=== PATIENT | male | born 1965 | race Caucasian/White ===

== ENCOUNTER 2017-05-25 11:23 | Emergency (ER) | payer MEDICAID ==
[2017-05-25] MEDS ORDERED: Albuterol/Ipratropium 3.0-0.5 MG/3 ML Neb Soln NEB ONE (11:40)
[2017-05-25] MEDS ORDERED: Albuterol/Ipratropium 3.0-0.5 MG/3 ML Neb Soln ONE (11:41)
[2017-05-25] MEDS ORDERED: predniSONE 20 MG Tab PO ONE (11:45)
--- NOTE | 2017-05-25 11:53 | EDM.PDOC ---
ED HPI GENERAL MEDICAL PROBLEM - General Chief Complaint: Respiratory Problem Stated Complaint: TROUBLE BREATHING, COPD Time Seen by Provider: 05/25/17 11:35 Source of Information: Reports: Patient History Limitations: Reports: Other (no old records) - History of Present Illness INITIAL COMMENTS - FREE TEXT/NARRATIVE: 51 yo male with known chronic lung dz quit smoking about a month ago. Was recently seen in a clinic in [place] and then was referred to a hair spring cutter in [place]. He has since moved to [place] and does not have a local provider. Initially was given a course of prednisone that helped him significantly and this was followed up with a Roberta SHAHI(200 mcg/5 mcg) sampler that he is now out of. For "awhile" he did OK with must albuterol and Spiriva, now has increased SOB, wheezing, and cough. No fever. Onset: Gradual Duration: Day(s): Location: Reports: Chest Quality: Reports: Other (Mild chest tightness with coughing only) Severity: Moderate Improves with: Reports: Rest Worsens with: Reports: Movement Context: Reports: Other (COPD) Associated Symptoms: Reports: Cough, Shortness of Breath. Denies: Chest Pain, Fever/Chills, Nausea/Vomiting Treatments HAM SAWYER: Reports: Other (see below) (Spiriva/Albuterol) - Related Data Allergies Allergy/AdvReac Type Severity Reaction Status Date / Time No Known Allergies Allergy Verified 05/25/17 11:45 Home Meds: Home Meds Albuterol Sulfate [Ventolin Hfa] 2 puff INH Q4HR 05/25/17 [History] Tiotropium [Spiriva HandiHaler] 1 cap INH DAILY 05/25/17 [History] ED ROS GENERAL - Review of Systems Review Of Systems: See Below Constitutional: Reports: No Symptoms HEENT: Reports: No Symptoms Respiratory: Reports: Shortness of Breath, Wheezing, Cough. Denies: Pleuritic Chest Pain, Sputum, Hemoptysis Cardiovascular: Reports: No Symptoms Endocrine: Reports: No Symptoms GI/Abdominal: Reports: No Symptoms : Reports: No Symptoms Musculoskeletal: Reports: No Symptoms Skin: Reports: No Symptoms Neurological: Reports: No Symptoms ED EXAM, GENERAL - Physical Exam Exam: See Below Exam Limited By: No Limitations General Appearance: Alert, WD/WN, Mild Distress, Obese Eye Exam: Bilateral Eye: Normal Inspection Ears: Normal External Exam, Normal Canal, Hearing Grossly Normal Ear Exam: Bilateral Ear: Auricle Normal, Canal Normal Nose: Normal Inspection, Normal Mucosa, No Blood Throat/Mouth: Normal Inspection, Normal Lips, Normal Oropharynx, Normal Voice, No Airway Compromise Head: Atraumatic, Normocephalic Respiratory/Chest: Decreased Breath Sounds, Wheezing, Prolonged Expiration. No : Retractions Cardiovascular: Regular Rate, Rhythm, No Edema GI/Abdominal: Normal Bowel Sounds, Soft, Non-Tender, No Distention Back Exam: Normal Inspection. No: CVA Tenderness (R), CVA Tenderness (L) Extremities: Normal Inspection, Normal Range of Motion, Non-Tender, No Pedal Edema Neurological: Alert, Oriented, CN II-XII Intact, Normal Cognition, No Motor/ Sensory Deficits Psychiatric: Normal Affect, Normal Mood Skin Exam: Warm, Dry, Intact, Normal Color, No Rash Lymphatic: No Adenopathy Course - Vital Signs Text/Narrative:: Breathing better after tx here in the ER. Last Recorded V/S: Last Vital Signs Temp 36.2 C 05/25/17 11:56 Pulse 93 05/25/17 11:56 Resp 18 05/25/17 11:56 BP 159/102 H 05/25/17 11:56 Pulse Ox 92 L 05/25/17 11:56 - Orders/Labs/Meds Orders: Active Orders 24 hr Category Date Time Status RT Aerosol Therapy [RC] ASDIRECTED Care 05/25/17 11:40 Active RT Aerosol Therapy [RC] ASDIRECTED Care 05/25/17 12:04 Active Chest 2V [CR] Stat Exams 05/25/17 12:35 Taken Labs: Laboratory Tests 05/25/17 Range/Units 12:15 WBC 11.6 H (4.5-11.0) K/uL RBC 5.85 (4.30-5.90) M/uL Hgb 16.4 H (12.0-15.0) g/dL Hct 51.0 (40.0-54.0) % MCV 87 (80-98) fL MCH 28 (27-31) pg MCHC 32 (32-36) % Plt Count 328 (150-400) K/uL Meds: Medications Discontinued Medications Generic Name Dose Route Start Last Admin Trade Name Freq PRN Reason Stop Dose Admin Albuterol 2.5 mg 05/25/17 12:04 05/25/17 12:35 Proventil Neb Soln NEB 05/25/17 12:05 2.5 mg ONETIME ONE Administration Albuterol/Ipratropium 3 ml 05/25/17 11:40 05/25/17 11:59 Duoneb 3.0-0.5 Mg/3 Ml NEB 05/25/17 11:41 3 ml ONETIME ONE Administration Albuterol/Ipratropium Confirm 05/25/17 11:41 05/25/17 12:35 Duoneb 3.0-0.5 Mg/3 Ml Administered 05/25/17 11:42 Not Given Dose 3 ml .ROUTE .STK-MED ONE Prednisone 40 mg 05/25/17 11:45 05/25/17 11:59 Prednisone PO 05/25/17 11:46 40 mg ONETIME ONE Administration - Radiology Interpretation Free Text/Narrative:: CXR- Departure - Departure Time of Disposition: 13:09 Disposition: Home, Self-Care 01 Condition: Fair Clinical Impression: COPD with exacerbation - Discharge Information Referrals: PCP,None [Primary Care Provider] - Forms: ED Department Discharge - My Orders Last 24 Hours: My Active Orders 05/25/17 11:40 RT Aerosol Therapy [RC] ASDIRECTED 05/25/17 12:04 RT Aerosol Therapy [RC] ASDIRECTED 05/25/17 12:35 Chest 2V [CR] Stat - Assessment/Plan Last 24 Hours: My Active Orders 05/25/17 11:40 RT Aerosol Therapy [RC] ASDIRECTED 05/25/17 12:04 RT Aerosol Therapy [RC] ASDIRECTED 05/25/17 12:35 Chest 2V [CR] Stat
[2017-05-25] MEDS ORDERED: Albuterol 0.083% 2.5 MG/3 ML Neb Soln NEB ONE (12:04)
--- NOTE | 2017-05-25 13:10 | CR ---
Two-view chest The heart and vascular structures are within normal limits. There is a subtle prominence of the inter stitial markings in the mid and lower lung cano. There are no alveolar infiltrates. There are no ef fusions. Impression: 1. Nonspecific mild prominence of the interstitial markings. The finding may reflect a interstitial p neumonitis. 2. No alveolar infiltrates.
== END 2017-05-25 13:25 | disposition home or self-care (01) ==
LOC: JP.ED 11:23
DX: J44.1 Chronic obstructive pulmonary disease with (acute) exacerbation (principal); Z79.899 Other long term (current) drug therapy
CPT/HCPCS: 36415; 71020; 85027; 94640; 99284; A9270; J7620

== ENCOUNTER 2018-08-22 20:04 | Emergency (ER) | payer MEDICAID ==
[2018-08-22] MEDS ORDERED: Sodium Chloride 0.9% 10 ML Syringe FLUSH PRN ×2 (20:22)
--- NOTE | 2018-08-22 20:26 | EDM.PDOC ---
ED HPI GENERAL MEDICAL PROBLEM - General Chief Complaint: Respiratory Problem Stated Complaint: MEDICAL VIA [facility] Time Seen by Provider: 08/22/18 20:18 Source of Information: Reports: Patient, RN Notes Reviewed History Limitations: Reports: Respiratory Distress - History of Present Illness INITIAL COMMENTS - FREE TEXT/NARRATIVE: 53-year-old gentleman presents to the emergency department today with complaint of shortness of breath, he has a known history of COPD he states he's been out of his medications for 2 weeks now it has progressively gotten worse over the last 2 weeks was brought in by ambulance denies any fevers chest pain nausea or vomiting Treatments [employer]: Reports: Breathing Treatments headache Pain Score (Numeric/FACES): 4 shoulders upper middle back Pain Score (Numeric/FACES): 1 - Related Data Allergies Allergy/AdvReac Type Severity Reaction Status Date / Time No Known Allergies Allergy Verified 08/22/18 20:05 Home Meds: Home Meds Albuterol Sulfate [Ventolin Hfa] 2 puff INH Q4HR 05/25/17 [History] Ipratropium Arrey [Atrovent Hfa] 12.9 gm IH QID #1 hfa.aer.[email or web address] 05/25/17 [Rx] Tiotropium [Spiriva HandiHaler] 1 cap INH DAILY 05/25/17 [History] Past Medical History Respiratory History: Reports: COPD Genitourinary History: Reports: Renal Calculus - Past Surgical History HEENT Surgical History: Reports: Tonsillectomy Male Surgical History: Reports: Lithotripsy (ESWL) Musculoskeletal Surgical History: Reports: Other (See Below) Other Musculoskeletal Surgeries/Procedures:: left hand finger reconstruction of the 2nd 3rd and 4th digit Social & Family History - Tobacco Use Smoking Status *Q: Current Every Day Smoker Years of Tobacco use: 25 Packs/Tins Daily: 0.2 - Caffeine Use Caffeine Use: Reports: Tea - Recreational Drug Use Recreational Drug Use: No ED ROS GENERAL - Review of Systems Review Of Systems: See Below Constitutional: Reports: No Symptoms HEENT: Reports: No Symptoms Respiratory: Reports: Shortness of Breath, Wheezing, Cough. Denies: Sputum Cardiovascular: Reports: Dyspnea on Exertion GI/Abdominal: Reports: No Symptoms : Reports: No Symptoms Musculoskeletal: Reports: No Symptoms Skin: Reports: No Symptoms Neurological: Reports: No Symptoms ED EXAM, GENERAL - Physical Exam Exam: See Below Free Text/Narrative:: General: Male, mild respiratory distress use of the sensory muscles, alert and oriented x3 HEENT: head is atraumatic normocephalic, eyes pupils equal round reactive to light, sclera clear no conjunctivitis appreciated. Ears tympanic membranes clear and littlejohn landmarks and light reflex are present bilaterally canals are clear. Nose no septal deviation, nares are clear, no blood present. Mouth mucosa is moist and pink no erythema or exudate noted in soft palate, tongue is midline uvula is midline, dentition is intact. Neck: Supple no thyromegaly no tracheal deviation. Nodes: Cervical nodes subclavicular nodes nontender no palpable lymphadenopathy noted. Lungs: Wheezing both inspiratory and expiratory phase throughout all lung cano bilaterally CV: Regular rate and rhythm S1 and S2 appreciated no murmurs rubs or gallops noted. Abdomen: Soft, obese, nontender, no palpable masses or organomegaly appreciated , no distention no guarding bowel sounds are present, . Neuro: GCS 15, cranial nerves II through XII intact Skin: Warm and dry, intact Extremities: No lower extremity edema appreciated, Course - Vital Signs Last Recorded V/S: Last Vital Signs Temp 98.0 F 08/22/18 20:14 Pulse 93 08/22/18 21:24 Resp 16 08/22/18 21:24 BP 171/111 H 08/22/18 21:24 Pulse Ox 94 L 08/22/18 21:24 - Orders/Labs/Meds Orders: Active Orders 24 hr Category Date Time Status Peripheral IV Care [RC] . DIRECTED Care 08/22/18 20:23 Active RT Post Treatment Assessment [RC] Click to Edit Care 08/22/18 21:33 Active Sodium Chloride 0.9% [Saline Flush] Med 08/22/18 20:22 Active 10 ml FLUSH ASDIRECTED PRN Sodium Chloride 0.9% [Saline Flush] Med 08/22/18 20:22 Active 10 ml FLUSH ASDIRECTED PRN Peripheral IV Insertion Adult [OM.PC] Urgent Oth 08/22/18 20:22 Ordered Medication Orders Sodium Chloride (Saline Flush) 10 ml FLUSH ASDIRECTED PRN PRN Reason: Keep Vein Open Last Admin: 08/22/18 21:21 Dose: 10 ml Sodium Chloride (Saline Flush) 10 ml FLUSH ASDIRECTED PRN PRN Reason: Keep Vein Open Last Admin: 08/22/18 21:30 Dose: 10 ml Labs: Laboratory Tests 08/22/18 08/22/18 08/22/18 Range/Units 20:22 20:22 20:22 WBC 11.8 H (4.5-11.0) K/uL RBC 6.17 H (4.30-5.90) M/uL Hgb 16.4 H (12.0-15.0) g/dL Hct 52.9 (40.0-54.0) % MCV 86 (80-98) fL MCH 27 (27-31) pg MCHC 31 L (32-36) % Plt Count 305 (150-400) K/uL Neut % (Auto) 76 H (36-66) % Lymph % (Auto) 17 L (24-44) % [place] % (Auto) 4 (2-6) % Eos % (Auto) 3 (2-4) % Baso % (Auto) 0 (0-1) % Puncture Site Rt.radial ABG pH 7.403 (7.350-7.450) ABG pCO2 48.3 H (35.0-42.0) mmHg ABG pO2 61.9 L (75.0-100.0) mmHg ABG HCO3 29.5 H (22.0-26.0) mmol/L ABG Total CO2 25.3 (23.0-27.0) mmol/L ABG O2 Saturation 90.8 L (95.0-98.0) % ABG O2 Content 20.4 (15.0-23.0) %vol ABG Base Excess 4.2 mm/L ABG Hemoglobin 16.2 (13.5-18.0) g/dL ABG Oxyhemoglobin 89.5 % ABG Carboxyhemoglobin 0.8 (0.0-1.6) % ABG Methemoglobin 0.6 % Maxwell Test Passed O2 Delivery Device Nasal cannula Oxygen Flow Rate 2 L Sodium 144 (140-148) mmol/L Potassium 4.3 (3.6-5.2) mmol/L Chloride 103 (100-108) mmol/L Carbon Dioxide 31 (21-32) mmol/L Anion Gap 10.1 (5.0-14.0) mmol/L BUN 22 H (7-18) mg/dL Creatinine 1.1 (0.8-1.3) mg/dL Est Cr Clr Drug Dosing 75.88 mL/min Estimated GFR (MDRD) > 60 (>60) Glucose 139 H (74-106) mg/dL Calcium 9.1 (8.5-10.1) mg/dL Total Bilirubin 0.2 (0.2-1.0) mg/dL AST 22 (15-37) U/L ALT 41 (12-78) U/L Alkaline Phosphatase 118 H (46-116) U/L Troponin I < 0.017 (0.000-0.056) ng/mL NT-Pro-B Natriuret Pep (5-125) pg/mL Total Protein 7.8 (6.4-8.2) g/dL Albumin 3.4 (3.4-5.0) g/dL Globulin 4.4 H (2.3-3.5) g/dL Albumin/Globulin Ratio 0.8 L (1.2-2.2) 08/22/18 Range/Units 20:24 WBC (4.5-11.0) K/uL RBC (4.30-5.90) M/uL Hgb (12.0-15.0) g/dL Hct (40.0-54.0) % MCV (80-98) fL MCH (27-31) pg MCHC (32-36) % Plt Count (150-400) K/uL Neut % (Auto) (36-66) % Lymph % (Auto) (24-44) % [place] % (Auto) (2-6) % Eos % (Auto) (2-4) % Baso % (Auto) (0-1) % Puncture Site ABG pH (7.350-7.450) ABG pCO2 (35.0-42.0) mmHg ABG pO2 (75.0-100.0) mmHg ABG HCO3 (22.0-26.0) mmol/L ABG Total CO2 (23.0-27.0) mmol/L ABG O2 Saturation (95.0-98.0) % ABG O2 Content (15.0-23.0) %vol ABG Base Excess mm/L ABG Hemoglobin (13.5-18.0) g/dL ABG Oxyhemoglobin % ABG Carboxyhemoglobin (0.0-1.6) % ABG Methemoglobin % Maxwell Test O2 Delivery Device Oxygen Flow Rate L Sodium (140-148) mmol/L Potassium (3.6-5.2) mmol/L Chloride (100-108) mmol/L Carbon Dioxide (21-32) mmol/L Anion Gap (5.0-14.0) mmol/L BUN (7-18) mg/dL Creatinine (0.8-1.3) mg/dL Est Cr Clr Drug Dosing mL/min Estimated GFR (MDRD) (>60) Glucose (74-106) mg/dL Calcium (8.5-10.1) mg/dL Total Bilirubin (0.2-1.0) mg/dL AST (15-37) U/L ALT (12-78) U/L Alkaline Phosphatase (46-116) U/L Troponin I (0.000-0.056) ng/mL NT-Pro-B Natriuret Pep 1028 H (5-125) pg/mL Total Protein (6.4-8.2) g/dL Albumin (3.4-5.0) g/dL Globulin (2.3-3.5) g/dL Albumin/Globulin Ratio (1.2-2.2) Meds: Medications Generic Name Dose Route Start Last Admin Trade Name Freq PRN Reason Stop Dose Admin Sodium Chloride 10 ml 08/22/18 20:22 08/22/18 21:21 Saline Flush FLUSH 10 ml ASDIRECTED PRN Administration Keep Vein Open Sodium Chloride 10 ml 08/22/18 20:22 08/22/18 21:30 Saline Flush FLUSH 10 ml ASDIRECTED PRN Administration Keep Vein Open Discontinued Medications Generic Name Dose Route Start Last Admin Trade Name Freq PRN Reason Stop Dose Admin Albuterol 1 gm 08/22/18 21:32 08/22/18 21:51 Ventolin Hfa INH 08/22/18 21:33 1 inhalation ONETIME ONE Administration Methylprednisolone Sodium Succinate 125 mg 08/22/18 21:03 08/22/18 21:21 Solu-Medrol IVPUSH 08/22/18 21:04 125 mg ONETIME ONE Administration Departure - Departure Time of Disposition: 22:03 Disposition: Home, Self-Care 01 Condition: Fair Clinical Impression: COPD with exacerbation - Discharge Information Referrals: PCP,None [Primary Care Provider] - Forms: ED Department Discharge Additional Instructions: Use albuterol inhaler as needed for shortness of breath, recommend starting the prednisone taper tomorrow, recommend restarting your regular medications as soon as possible please follow-up with your primary care in the next 5-7 days for reevaluation, call return to the emergency department worsening of symptoms - My Orders Last 24 Hours: My Active Orders 08/22/18 20:22 Sodium Chloride 0.9% [Saline Flush] 10 ml FLUSH ASDIRECTED PRN Sodium Chloride 0.9% [Saline Flush] 10 ml FLUSH ASDIRECTED PRN Peripheral IV Insertion Adult [OM.PC] Urgent 08/22/18 20:23 Peripheral IV Care [RC] . DIRECTED 08/22/18 21:33 RT Post Treatment Assessment [RC] Click to Edit - Assessment/Plan Last 24 Hours: My Active Orders 08/22/18 20:22 Sodium Chloride 0.9% [Saline Flush] 10 ml FLUSH ASDIRECTED PRN Sodium Chloride 0.9% [Saline Flush] 10 ml FLUSH ASDIRECTED PRN Peripheral IV Insertion Adult [OM.PC] Urgent 08/22/18 20:23 Peripheral IV Care [RC] . DIRECTED 08/22/18 21:33 RT Post Treatment Assessment [RC] Click to Edit Plan: Assessment Acuity = acute Site and laterality = COPD exacerbation Etiology = medical compliance Manifestations = dyspnea Location of injury = Home Lab values = WBC elevated 11.8 consistent leukocytosis ABG pH 7.4 PCO2 48.3 PO2 at 61.5 bicarbonate at 29.5 troponin is negative BNP elevated 1028 probably related to cor pulmonale and chest x-ray unremarkable Plan He had good relief with albuterol neb provided and Solu-Medrol 125 mg 1, he was provided an MDI albuterol inhaler prescription written for prednisone taper burst 40 mg for 3 days 20 mg for 3 days then 10 milligrams per 5 days recommend follow-up primary care 5-7 days for reevaluation recommend restarting home meds as soon as possible This note was dictated using [employer]gar voice recognition software please call with any questions on syntax or grammar.
[2018-08-22] MEDS ORDERED: methylPREDNISolone Sodium Succinate 125 MG/2 ML SDV IVPUSH ONE (21:03)
--- NOTE | 2018-08-22 21:21 | CRLCR ---
Indication: SOB Technique: Chest 1 view Comparison: 05/25/2017. Findings/Impression: Cardiovascular and mediastinum: Cardiomegaly. Lungs and pleural space: A lordotic study. Elevated right hemidiaphragm. Right basilar and perihilar atelectasis. Followup with PA and lateral views to exclude a right infrahilar infiltrate. No gross pleural effusions. Bones and soft tissues: No significant change. Dictated by Donnell Chanel MD @ 08/22/2018 9:19:13 PM Dictated by: Donnell Chanel MD @ 08/22/2018 21:19:34 (Electronically Signed)
[2018-08-22] MEDS ORDERED: Albuterol 8 GM Inhaler INH ONE (21:32)
== END 2018-08-22 22:16 | disposition home or self-care (01) ==
LOC: JP.ED 20:04
DX: J44.1 Chronic obstructive pulmonary disease with (acute) exacerbation (principal); F17.210 Nicotine dependence, cigarettes, uncomplicated; Z98.890 Other specified postprocedural states
CPT/HCPCS: 36600; 71045; 80053; 82803; 83880; 84484; 85025; 94640; 96374; 99285; A9270; J2930

== ENCOUNTER 2018-09-12 16:47 | Inpatient (IN) | payer MEDICAID ==
--- NOTE | 2018-09-12 16:54 | EDM.PDOC ---
ED HPI GENERAL MEDICAL PROBLEM - General Stated Complaint: [facility] Time Seen by Provider: 09/12/18 16:47 Source of Information: Reports: Patient, EMS History Limitations: Reports: Physical Impairment, Respiratory Distress - History of Present Illness INITIAL COMMENTS - FREE TEXT/NARRATIVE: 53-year-old male had a fairly sudden onset of severe respiratory distress over the past 3 hours, requiring ambulance transfer to the hospital. He was fine at 2 PM, laid down for a nap and when he woke he felt tight and shortness of breath. He took a DuoNeb which usually turns around, his time it didn't help and he continued to worsen. He arrives with CPAP, he has had 150 mg of Solu- Medrol IV, and albuterol nebulizer and DuoNeb nebulizer. O2 sats are 94% on 10 L of O2 given by CPAP mask. Respiratory rate is increased, respiratory effort is increased, patient is fairly uncomfortable. He was able to walk out to the ambulance prior to transfer. He was seen in the emergency room within the last month for similar symptoms, responded to outpatient prednisone. Onset: Sudden Duration: Hour(s): (3 hours) Back Pain Score (Numeric/FACES): 5 - Related Data Allergies Allergy/AdvReac Type Severity Reaction Status Date / Time No Known Allergies Allergy Verified 09/12/18 19:49 Home Meds: Home Meds Albuterol Sulfate [Ventolin Hfa] 2 puff INH Q4HR 05/25/17 [History] Ipratropium [place] [Atrovent Hfa] 12.9 gm IH QID #1 hfa.aer.ad 05/25/17 [Rx] Tiotropium [Spiriva HandiHaler] 1 cap INH DAILY 05/25/17 [History] Past Medical History Respiratory History: Reports: COPD Genitourinary History: Reports: Renal Calculus - Past Surgical History HEENT Surgical History: Reports: Tonsillectomy Male Surgical History: Reports: Lithotripsy (ESWL) Musculoskeletal Surgical History: Reports: Other (See Below) Other Musculoskeletal Surgeries/Procedures:: left hand finger reconstruction of the 2nd 3rd and 4th digit Social & Family History - Caffeine Use Caffeine Use: Reports: Tea ED ROS GENERAL - Review of Systems Review Of Systems: See Below Constitutional: Denies: Fever, Chills (() HEENT: Denies: Throat Pain Respiratory: Reports: Shortness of Breath, Cough Cardiovascular: Denies: Chest Pain GI/Abdominal: Reports: No Symptoms : Reports: No Symptoms Musculoskeletal: Reports: Back Pain Skin: Reports: No Symptoms Neurological: Denies: Headache ED EXAM, GENERAL - Physical Exam Exam: See Below Exam Limited By: Respiratory Distress General Appearance: Alert, Moderate Distress Eye Exam: Bilateral Eye: EOMI Head: Atraumatic Respiratory/Chest: Respiratory Distress, Wheezing (Marked diffuse bilateral expiratory wheezes) Cardiovascular: Regular Rate, Rhythm, Other (Distant heart sounds) GI/Abdominal: Other (Morbidly obese, nontender) Extremities: No: Pedal Edema (No significant pedal edema) Neurological: Alert, Oriented Psychiatric: Anxious Skin Exam: Warm, Dry Course - Vital Signs Last Recorded V/S: Last Vital Signs Temp 96.5 F 09/13/18 07:00 Pulse 90 09/13/18 07:13 Resp 24 H 09/13/18 07:00 BP 172/93 H 09/13/18 07:00 Pulse Ox 94 L 09/13/18 07:31 - Orders/Labs/Meds Orders: Medication Orders Acetaminophen (Tylenol) 650 mg PO Q4H PRN PRN Reason: Pain (Mild 1-3)/fever Albuterol (Proventil Neb Soln) 2.5 mg NEB Q2H PRN PRN Reason: shortness of breath/wheezing Last Admin: 09/13/18 00:01 Dose: 2.5 mg Albuterol/Ipratropium (Duoneb 3.0-0.5 Mg/3 Ml) 3 ml NEB QIDRT [facility] Last Admin: 09/13/18 07:12 Dose: 3 ml Admin: 09/12/18 20:23 Dose: 3 ml Benzonatate (Tessalon Perles) 100 mg PO TID PRN PRN Reason: Cough Enoxaparin Sodium (Lovenox) 40 mg SUBCUT DAILY [facility] Guaifenesin/Codeine Phosphate (Robitussin Ac) 10 ml PO Q4H PRN PRN Reason: Cough Ceftriaxone Sodium 2 gm/ (Sodium Chloride) 50 mls @ 100 mls/hr IV Q24H [facility] Last Admin: 09/12/18 18:48 Dose: 100 mls/hr Sodium Chloride (Normal Saline) 1,000 mls @ 100 mls/hr IV ASDIRECTED [facility] Last Admin: 09/12/18 23:01 Dose: 100 mls/hr Infusion: 09/12/18 23:01 Dose: 100 mls/hr Admin: 09/12/18 19:15 Dose: 100 mls/hr Azithromycin 500 mg/ Sodium (Chloride) 250 mls @ 250 mls/hr IV Q24H [facility] Ibuprofen (Motrin) 600 mg PO Q6H PRN PRN Reason: Pain/Fever Lorazepam (Ativan) 0.5 mg IVPUSH Q4H PRN PRN Reason: Anxiety Methylprednisolone Sodium Succinate (Solu-Medrol) 62.5 mg IVPUSH Q8H [facility] Last Admin: 09/13/18 00:26 Dose: 62.5 mg Morphine Sulfate (Morphine) 4 mg IVPUSH Q2H PRN PRN Reason: Pain (severe 7-10) Ondansetron HCl (Zofran Odt) 4 mg PO Q6H PRN PRN Reason: Nausea able to take PO Ondansetron HCl (Zofran) 4 mg IV Q6H PRN PRN Reason: Nausea/Vomiting Pantoprazole Sodium (Protonix) 40 mg PO ACBREAKFAST [facility] Polyethylene Glycol (Miralax) 17 gm PO DAILY PRN PRN Reason: Constipation Senna/Docusate Sodium (Senna Plus) 1 tab PO BID PRN PRN Reason: Constipation Labs: Laboratory Tests 09/12/18 09/12/18 09/12/18 Range/Units 16:49 17:01 17:01 WBC 14.4 H (4.5-11.0) K/uL RBC 5.86 (4.30-5.90) M/uL Hgb 15.5 H (12.0-15.0) g/dL Hct 51.1 (40.0-54.0) % MCV 87 (80-98) fL MCH 27 (27-31) pg MCHC 30 L (32-36) % Plt Count 365 (150-400) K/uL Neut % (Auto) 74 H (36-66) % Lymph % (Auto) 16 L (24-44) % [place] % (Auto) 5 (2-6) % Eos % (Auto) 5 H (2-4) % Baso % (Auto) 0 (0-1) % Puncture Site Rt.radial ABG pH 7.320 L (7.350-7.450) ABG pCO2 58.4 H (35.0-42.0) mmHg ABG pO2 77.5 (75.0-100.0) mmHg ABG HCO3 29.2 H (22.0-26.0) mmol/L ABG Total CO2 25.6 (23.0-27.0) mmol/L ABG O2 Saturation 93.8 L (95.0-98.0) % ABG O2 Content 20.4 (15.0-23.0) %vol ABG Base Excess 1.9 mm/L ABG Hemoglobin 15.9 (13.5-18.0) g/dL ABG Oxyhemoglobin 91.4 % ABG Carboxyhemoglobin 2.1 H (0.0-1.6) % ABG Methemoglobin 0.5 % Maxwell Test Passed O2 Delivery Device Cpap Oxygen Flow Rate 10 L Sodium 140 (140-148) mmol/L Potassium 4.6 (3.6-5.2) mmol/L Chloride 102 (100-108) mmol/L Carbon Dioxide 30 (21-32) mmol/L Anion Gap 7.6 (5.0-14.0) mmol/L BUN 17 (7-18) mg/dL Creatinine 1.0 (0.8-1.3) mg/dL Est Cr Clr Drug Dosing 83.19 mL/min Estimated GFR (MDRD) > 60 (>60) Glucose 135 H (74-106) mg/dL Calcium 9.0 (8.5-10.1) mg/dL Total Bilirubin 0.3 (0.2-1.0) mg/dL AST 37 (15-37) U/L ALT 47 (12-78) U/L Alkaline Phosphatase 125 H (46-116) U/L Troponin I 0.022 (0.000-0.056) ng/mL Total Protein 7.6 (6.4-8.2) g/dL Albumin 3.2 L (3.4-5.0) g/dL Globulin 4.4 H (2.3-3.5) g/dL Albumin/Globulin Ratio 0.7 L (1.2-2.2) Meds: Medications Generic Name Dose Route Start Last Admin Trade Name Freq PRN Reason Stop Dose Admin Acetaminophen 650 mg 09/12/18 18:28 Tylenol PO Q4H PRN Pain (Mild 1-3)/fever Albuterol 2.5 mg 09/12/18 18:28 09/13/18 00:01 Proventil Neb Soln NEB 2.5 mg Q2H PRN Administration shortness of breath/wheezing Albuterol/Ipratropium 3 ml 09/12/18 21:00 09/13/18 07:12 Duoneb 3.0-0.5 Mg/3 Ml NEB 3 ml QIDRT [facility] Administration Benzonatate 100 mg 09/12/18 18:28 Tessalon Perles PO TID PRN Cough Enoxaparin Sodium 40 mg 09/13/18 09:00 Lovenox SUBCUT DAILY [facility] Guaifenesin/Codeine Phosphate 10 ml 09/12/18 18:28 Robitussin Ac PO Q4H PRN Cough Ceftriaxone Sodium 2 gm/ 50 mls @ 100 mls/hr 09/12/18 18:30 09/12/18 18:48 Sodium Chloride IV 100 mls/hr Q24H [facility] Administration Sodium Chloride 1,000 mls @ 100 mls/hr 09/12/18 18:28 09/12/18 23:01 Normal Saline IV 100 mls/hr ASDIRECTED [facility] Administration Azithromycin 500 mg/ Sodium 250 mls @ 250 mls/hr 09/13/18 17:00 Chloride IV Q24H [facility] Ibuprofen 600 mg 09/12/18 18:28 Motrin PO Q6H PRN Pain/Fever Lorazepam 0.5 mg 09/12/18 18:28 Ativan IVPUSH Q4H PRN Anxiety Methylprednisolone Sodium Succinate 62.5 mg 09/13/18 01:00 09/13/18 00:26 Solu-Medrol IVPUSH 62.5 mg Q8H [facility] Administration Morphine Sulfate 4 mg 09/12/18 18:28 Morphine IVPUSH Q2H PRN Pain (severe 7-10) Ondansetron HCl 4 mg 09/12/18 18:28 Zofran Odt PO Q6H PRN Nausea able to take PO Ondansetron HCl 4 mg 09/12/18 18:28 Zofran IV Q6H PRN Nausea/Vomiting Pantoprazole Sodium 40 mg 09/13/18 07:30 Protonix PO ACBREAKFAST [facility] Polyethylene Glycol 17 gm 09/12/18 18:28 Miralax PO DAILY PRN Constipation Senna/Docusate Sodium 1 tab 09/12/18 18:28 Senna Plus PO BID PRN Constipation Discontinued Medications Generic Name Dose Route Start Last Admin Trade Name Sam PRN Reason Stop Dose Admin Hydralazine HCl 5 mg 09/12/18 21:22 09/12/18 21:34 Apresoline IVPUSH 09/12/18 21:23 5 mg ONETIME ONE Administration Azithromycin 500 mg/ Sodium 250 mls @ 250 mls/hr 09/12/18 19:30 09/12/18 19: 17 Chloride IV 250 mls/hr Q24H [facility] Administration - Re-Assessments/Exams Free Text/Narrative Re-Assessment/Exam: 09/12/18 17:34 Patient was continued on CPAP, ABGs CBC and portable chest x-ray were obtained as well as a BMP. Chest x-ray showed no significant failure or infiltrate, there was a small oval shaped density in the left costophrenic angle seen anteriorly. ABGs returned with a picture of respiratory acidosis, elevated CO2 and decreased pH. He slowly improved. I asked the hospitalist service to assess the patient for admission for acute exacerbation of reactive airways and hypoxia. 09/12/18 17:35 PH was 7.30, PCO2 58. White count 14,400, hemoglobin 15.5. Departure - Departure Time of Disposition: 18:30 Disposition: Admitted As Inpatient 64 Condition: Fair Clinical Impression: Exacerbation of asthma Qualifiers: Asthma severity: severe Asthma persistence: persistent Qualified Code(s): J45.51 - Severe persistent asthma with (acute) exacerbation - Discharge Information
--- NOTE | 2018-09-12 18:07 | CRLCR ---
INDICATION: SEVERE SHORTNESS OF BREATH PREVIOUS IMAGE TAKEN 3 WEEKS AGO SENT, [facility] SHOULD HAVE PRIOR REPORT HISTORY: Shortness of breath. COMPARISON: 08/22/2018. TECHNIQUE: Chest one-view portable upright. FINDINGS: Interval improvement in bibasilar atelectasis, when compared with previous. Vague opacities persist at the left lung base. There is no pneumothorax. The central airway is normal. The osseous structures are intact. Lateral costophrenic sulci are sharp. Heart size and pulmonary vasculature are within normal limits given portable technique. IMPRESSION: Interval improvement in bibasilar atelectasis when compared with 08/22/2018. Dictated by Kieran Montemayor MD @ 09/12/2018 6:05:08 PM Dictated by: Kieran Montemayor MD @ 09/12/2018 18:05:14 (Electronically Signed)
--- NOTE | 2018-09-12 18:16 | PCM.HP ---
H&P History of Present Illness - General Date of Service: 09/12/18 Admit Problem/Dx: Admission Diagnosis/Problem Admission Diagnosis/Problem Acute bronchitis Source of Information: Patient, Provider History Limitations: Reports: No Limitations - History of Present Illness Initial Comments - Free Text/Narative: Harmeet presents to the emergency room today by ambulance with acute onset of shortness of breath that started around 2 PM this afternoon after he woke up from a nap. He reports that he had an increase in his shortness of breath as well as a cough 2 days ago and did use his albuterol inhaler more than usual. Symptoms were better yesterday and were pretty minimal this morning prior to taking a nap. He does note an increased cough which is occasionally productive, mostly for clear sputum. He doesn't think he's had any fevers or chills. Appetite has been normal. No change in bowel or bladder habits. Since onset of symptoms this afternoon he reports a mild to moderate sharp pain underneath his rib cage. This radiates around to the back slightly. Pain is worse with taking deep breaths and better when he is able to slow down his breathing. He said normally using a nebulizer decreases his shortness of breath symptoms but it did not work today. Has not had any sick contacts. He did have steroids about 3 weeks ago but has not had any antibiotics. He has not traveled. No chest pain or exertional chest pain. Workup in the emergency room revealed respiratory distress a gentleman who is on CPAP. His white count was normal and chemistries were unremarkable. ABGs showed mild acidosis with a PCO2 of 58. Chest x-ray was clear. He did receive steroids as well as a nebulizer in the ambulance. He will be admitted to the intensive care unit for bronchitis with COPD exacerbation, respiratory failure and the necessity of noninvasive ventilation. Back Pain Score (Numeric/FACES): 5 - Related Data Allergies/Adverse Reactions: Allergies Allergy/AdvReac Type Severity Reaction Status Date / Time No Known Allergies Allergy Verified 09/12/18 17:26 Home Medications: Home Meds Albuterol Sulfate [Ventolin Hfa] 2 puff INH Q4HR 05/25/17 [History] Ipratropium [place] [Atrovent Hfa] 12.9 gm IH QID #1 hfa.aer.ad 05/25/17 [Rx] Tiotropium [Spiriva HandiHaler] 1 cap INH DAILY 05/25/17 [History] Past Medical History Respiratory History: Reports: COPD Genitourinary History: Reports: Renal Calculus - Past Surgical History HEENT Surgical History: Reports: Tonsillectomy Male Surgical History: Reports: Lithotripsy (ESWL) Musculoskeletal Surgical History: Reports: Other (See Below) Other Musculoskeletal Surgeries/Procedures:: left hand finger reconstruction of the 2nd 3rd and 4th digit Social & Family History - Family History Respiratory: Denies: COPD - Tobacco Use Smoking Status *Q: Current Every Day Smoker Years of Tobacco use: 25 Packs/Tins Daily: 0.2 - Caffeine Use Caffeine Use: Reports: Tea - Alcohol Use Alcohol Use History: No - Recreational Drug Use Recreational Drug Use: No H&P Review of Systems - Review of Systems: Review Of Systems: See Below Free Text/Narrative: A complete 12 point review of systems was obtained. Pertinent positives and negatives are noted in the history of present illness. All other systems were reviewed and were negative except as noted. Exam - Exam Exam: See Below - Vital Signs Vital Signs: Last Vital Signs Temp 36.0 C 09/12/18 16:57 Pulse 100 09/12/18 17:54 Resp 24 H 09/12/18 17:54 BP 148/101 H 09/12/18 17:54 Pulse Ox 95 09/12/18 17:54 Weight: 168.2 kg - Exam Quality Assessment: Supplemental Oxygen General: Alert, Oriented, Cooperative, Mild Distress (increased work of breathing), Other (Able to speak in short sentences) HEENT: Conjunctiva Clear. No: Mucosa Moist & [place] (dry), Scleral Icterus Neck: Supple. No: Lymphadenopathy Lungs: Wheezing (diffuse inspiratory and expiratory ). No: Normal Respiratory Effort (increased work of breathing ) Cardiovascular: Regular Rhythm, Tachycardia GI/Abdominal Exam: Normal Bowel Sounds, Soft, Non-Tender, No Distention, Other ( obese) Back Exam: Normal Inspection Extremities: No Pedal Edema. No: Increased Warmth Skin: Warm, Dry Neuro Extensive - Mental Status: Alert, Oriented x3, Nl Response to Commands Neuro Extensive - Motor, Sensory, Reflexes: No: Abnormal Motor, Tremor Psychiatric: Alert, Normal Affect - Patient Data Lab Results Last 24 hrs: Laboratory Results - last 24 hr 03/17/19 03/17/19 03/17/19 Range/Units 16:49 17:01 17:01 WBC 14.4 H (4.5-11.0) K/uL RBC 5.86 (4.30-5.90) M/uL Hgb 15.5 H (12.0-15.0) g/dL Hct 51.1 (40.0-54.0) % MCV 87 (80-98) fL MCH 27 (27-31) pg MCHC 30 L (32-36) % Plt Count 365 (150-400) K/uL Neut % (Auto) 74 H (36-66) % Lymph % (Auto) 16 L (24-44) % [place] % (Auto) 5 (2-6) % Eos % (Auto) 5 H (2-4) % Baso % (Auto) 0 (0-1) % Puncture Site Rt.radial ABG pH 7.320 L (7.350-7.450) ABG pCO2 58.4 H (35.0-42.0) mmHg ABG pO2 77.5 (75.0-100.0) mmHg ABG HCO3 29.2 H (22.0-26.0) mmol/L ABG Total CO2 25.6 (23.0-27.0) mmol/L ABG O2 Saturation 93.8 L (95.0-98.0) % ABG O2 Content 20.4 (15.0-23.0) %vol ABG Base Excess 1.9 mm/L ABG Hemoglobin 15.9 (13.5-18.0) g/dL ABG Oxyhemoglobin 91.4 % ABG Carboxyhemoglobin 2.1 H (0.0-1.6) % ABG Methemoglobin 0.5 % Maxwell Test Passed O2 Delivery Device Cpap Oxygen Flow Rate 10 L Sodium 140 (140-148) mmol/L Potassium 4.6 (3.6-5.2) mmol/L Chloride 102 (100-108) mmol/L Carbon Dioxide 30 (21-32) mmol/L Anion Gap 7.6 (5.0-14.0) mmol/L BUN 17 (7-18) mg/dL Creatinine 1.0 (0.8-1.3) mg/dL Est Cr Clr Drug Dosing 83.19 mL/min Estimated GFR (MDRD) > 60 (>60) Glucose 135 H (74-106) mg/dL Calcium 9.0 (8.5-10.1) mg/dL Total Bilirubin 0.3 (0.2-1.0) mg/dL AST 37 (15-37) U/L ALT 47 (12-78) U/L Alkaline Phosphatase 125 H (46-116) U/L Troponin I 0.022 (0.000-0.056) ng/mL Total Protein 7.6 (6.4-8.2) g/dL Albumin 3.2 L (3.4-5.0) g/dL Globulin 4.4 H (2.3-3.5) g/dL Albumin/Globulin Ratio 0.7 L (1.2-2.2) Result Diagrams: 09/12/18 17:01 09/12/18 17:01 Imaging Impressions Last 24 hrs: CXR - images personally reviewed - there is hyperinflation but lungs are otherwise clear with no mass, effusion or definite infiltrate *Q Meaningful Use (ADM) - VTE Risk Assess *Q Each Risk Factor Represents 1 Point: Age 41 - 59 years, Obesity ( BMI > 25 kg/m2 ), Serious lung disease including pneumonia, Abnormal Pulmonary Function (COPD) Total Score 1 Point Risk Factors: 4 Each Risk Factor Represents 2 Points: None Total Score 2 Point Risk Factors: 0 Each Risk Factor Represents 3 Points: None Total Score 3 Point Risk Factors: 0 Each Risk Factor Represents 5 Points: None Total Score 5 Point Risk Factors: 0 Venous Thromboembolism Risk Factor Score *Q: 4 - Problem List (1) Acute bronchitis SNOMED Code(s): 54619367 ICD Code: J20.9 - ACUTE BRONCHITIS, UNSPECIFIED Status: Acute Current Visit: Yes Qualifiers: Bronchitis organism: unspecified organism Qualified Code(s): J20.9 - Acute bronchitis, unspecified (2) Acute respiratory failure with hypoxia and hypercapnia SNOMED Code(s): 677416337 ICD Code: J96.01 - ACUTE RESPIRATORY FAILURE WITH HYPOXIA; J96.02 - ACUTE RESPIRATORY FAILURE WITH HYPERCAPNIA Status: Acute Current Visit: Yes (3) COPD with exacerbation SNOMED Code(s): 174977890, 432572882 ICD Code: J44.1 - CHRONIC OBSTRUCTIVE PULMONARY DISEASE W (ACUTE) EXACERBATION Status: Acute Current Visit: No (4) Tobacco dependence SNOMED Code(s): 88527160 ICD Code: F17.200 - NICOTINE DEPENDENCE, UNSPECIFIED, UNCOMPLICATED Status : Chronic Current Visit: Yes (5) Morbid obesity with BMI of 50.0-59.9, adult SNOMED Code(s): 758200983, 74087373272951 ICD Code: E66.01 - MORBID (SEVERE) OBESITY DUE TO EXCESS CALORIES; Z68.43 - BODY MASS INDEX (BMI) 50-59.9, ADULT Status: Chronic Current Visit: Yes Problem List Initiated/Reviewed/Updated: Yes Orders Last 24hrs: Active Orders 24 hr Category Date Time Status Patient Status Manage Transfer [TRANSFER] Routine ADT 09/12/18 18:01 Ordered Resuscitation Status Routine Resus Stat 09/12/18 18:02 Ordered Assessment/Plan Comment:: ASSESSMENT AND PLAN - Acute bronchitis - complicated by acute exacerbation of COPD and acute respiratory failure with hypoxia and hypercapnia. Patient is a nonsmoker. He reports recent medication compliance. Symptoms have been progressing over a couple of days but more acutely this afternoon. Currently no fevers. Chest x- ray clear. He does have CO2 retention. He continues to work hard despite being on CPAP which is being transitioned to noninvasive ventilation. He does have increased cough and some sputum. -Ceftriaxone and azithromycin -IV steroids -Repeat ABGs in a few hours and in the morning -Scheduled and as needed nebulizers -Noninvasive ventilation, wean as able but I would anticipate he will need an overnight at least -Gentle fluids -Symptomatic management of cough -Lorazepam as needed if he develops anxiety/claustrophobia with the mask Tobacco dependence - Patient will need discussions about tobacco cessation once respiratory status has stabilized. Morbid obesity - BMIs to shy of 55. Maintenance issues - - DVT prophylaxis - enoxaparin - GI prophylaxis - PPI - Nutrition - clear liquids until respiratory status stabilizes - Orta catheter - not indicated CODE STATUS - full code Admission justification - This patient will be admitted for inpatient services and is medically appropriate meeting medical necessity for inpatient admission as outlined in my documentation. I reasonably expect the patient will require inpatient services that span a period time over 2 midnights. I reasonably expect this patient to be discharged or transferred within 96 hours after [facility] to the [facility]. Disposition - I would anticipate discharge home after the hospital stay Primary care physician - Vaibhav Carr M.D.
[2018-09-12] MEDS ORDERED: Acetaminophen 325 MG Tab PO PRN (18:28)
[2018-09-12] MEDS ORDERED: Albuterol 0.083% 2.5 MG/3 ML Neb Soln NEB PRN (18:28)
[2018-09-12] MEDS ORDERED: LORazepam 2 MG/ML SDV IVPUSH PRN (18:28)
[2018-09-12] MEDS ORDERED: Morphine 4 MG/ML Syringe IVPUSH PRN (18:28)
[2018-09-12] MEDS ORDERED: Polyethylene Glycol 3350 Powder 17 GM Packet PO PRN (18:28)
[2018-09-12] MEDS ORDERED: Ondansetron 4 MG/2 ML SDV IV PRN (18:28)
[2018-09-12] MEDS ORDERED: Ibuprofen 600 MG Tab PO PRN (18:28)
[2018-09-12] MEDS ORDERED: Ondansetron 4 MG Tab.DIS PO PRN (18:28)
[2018-09-12] MEDS: cefTRIAXone 2 GM in Sodium Chloride 0.9% 50 ML IV SCH (18:48)
[2018-09-12] MEDS: Sodium Chloride 0.9% 1,000 ML IV SCH ×2 (19:15→23:01)
[2018-09-12] MEDS ORDERED: Azithromycin 500 MG in Sodium Chloride 0.9% 250 ML IV SCH (19:30)
[2018-09-12] MEDS: Albuterol/Ipratropium 3.0-0.5 MG/3 ML Neb Soln NEB SCH (20:23)
[2018-09-12] MEDS ORDERED: hydrALAZINE 20 MG/ML SDV IVPUSH ONE (21:22)
[2018-09-13] MEDS: methylPREDNISolone Sodium Succinate 125 MG/2 ML SDV IVPUSH SCH ×3 (00:26→17:54)
[2018-09-13] MEDS: Albuterol/Ipratropium 3.0-0.5 MG/3 ML Neb Soln NEB SCH ×4 (07:12→21:21)
[2018-09-13] MEDS: Pantoprazole 40 MG Tab.CR PO SCH (08:07)
[2018-09-13] MEDS: Enoxaparin 40 MG/0.4 ML Syringe SUBCUT SCH (08:10)
[2018-09-13] MEDS: Sodium Chloride 0.9% 1,000 ML IV SCH (09:35)
--- NOTE | 2018-09-13 10:05 | PCM.PN ---
- General Info Date of Service: 09/13/18 Subjective Update: Mr. Ramey is admitted early yesterday evening with bronchitis, hypoxia, and COPD exacerbation. He has been treated with noninvasive positive pressure ventilation overnight, this morning is on nasal cannula with relatively high flow rate. He does feel improved from admission with less shortness of breath and cough. Functional Status: Reports: Tolerating Diet, Urinating - Review of Systems General: Denies: Fever, Chills Pulmonary: Reports: Shortness of Breath, Cough, Wheezing. Denies: Sputum, Hemoptysis Cardiovascular: Reports: Dyspnea on Exertion. Denies: Chest Pain, Palpitations , Orthopnea, PND, Edema Gastrointestinal: Reports: No Symptoms - Patient Data Vitals - Most Recent: Last Vital Signs Temp 96.5 F 09/13/18 07:00 Pulse 86 09/13/18 09:00 Resp 19 09/13/18 09:00 BP 168/102 H 09/13/18 09:00 Pulse Ox 95 09/13/18 09:00 Weight - Most Recent: 367 lb 3.196 oz I&O - Last 24 Hours: Intake & Output 09/12/18 09/13/18 09/13/18 22:59 06:59 14:59 Intake Total 1312 500 Output Total 250 475 200 Balance -250 837 300 Lab Results Last 24 Hours: Laboratory Results - last 24 hr 09/12/18 09/12/18 09/12/18 Range/Units 16:49 17:01 17:01 WBC 14.4 H (4.5-11.0) K/uL RBC 5.86 (4.30-5.90) M/uL Hgb 15.5 H (12.0-15.0) g/dL Hct 51.1 (40.0-54.0) % MCV 87 (80-98) fL MCH 27 (27-31) pg MCHC 30 L (32-36) % Plt Count 365 (150-400) K/uL Neut % (Auto) 74 H (36-66) % Lymph % (Auto) 16 L (24-44) % Nelson % (Auto) 5 (2-6) % Eos % (Auto) 5 H (2-4) % Baso % (Auto) 0 (0-1) % Puncture Site Rt.radial ABG pH 7.320 L (7.350-7.450) ABG pCO2 58.4 H (35.0-42.0) mmHg ABG pO2 77.5 (75.0-100.0) mmHg ABG HCO3 29.2 H (22.0-26.0) mmol/L ABG Total CO2 25.6 (23.0-27.0) mmol/L ABG O2 Saturation 93.8 L (95.0-98.0) % ABG O2 Content 20.4 (15.0-23.0) %vol ABG Base Excess 1.9 mm/L ABG Hemoglobin 15.9 (13.5-18.0) g/dL ABG Oxyhemoglobin 91.4 % ABG Carboxyhemoglobin 2.1 H (0.0-1.6) % ABG Methemoglobin 0.5 % Maxwell Test Passed O2 Delivery Device Cpap Oxygen Flow Rate 10 L Sodium 140 (140-148) mmol/L Potassium 4.6 (3.6-5.2) mmol/L Chloride 102 (100-108) mmol/L Carbon Dioxide 30 (21-32) mmol/L Anion Gap 7.6 (5.0-14.0) mmol/L BUN 17 (7-18) mg/dL Creatinine 1.0 (0.8-1.3) mg/dL Est Cr Clr Drug Dosing 83.19 mL/min Estimated GFR (MDRD) > 60 (>60) Glucose 135 H (74-106) mg/dL Calcium 9.0 (8.5-10.1) mg/dL Total Bilirubin 0.3 (0.2-1.0) mg/dL AST 37 (15-37) U/L ALT 47 (12-78) U/L Alkaline Phosphatase 125 H (46-116) U/L Troponin I 0.022 (0.000-0.056) ng/mL Total Protein 7.6 (6.4-8.2) g/dL Albumin 3.2 L (3.4-5.0) g/dL Globulin 4.4 H (2.3-3.5) g/dL Albumin/Globulin Ratio 0.7 L (1.2-2.2) 09/12/18 09/13/18 09/13/18 Range/Units 21:00 05:47 05:48 WBC 14.8 H (4.5-11.0) K/uL RBC 5.93 H (4.30-5.90) M/uL Hgb 16.2 H (12.0-15.0) g/dL Hct 50.5 (40.0-54.0) % MCV 85 (80-98) fL MCH 27 (27-31) pg MCHC 32 (32-36) % Plt Count 347 (150-400) K/uL Neut % (Auto) (36-66) % Lymph % (Auto) (24-44) % Nelson % (Auto) (2-6) % Eos % (Auto) (2-4) % Baso % (Auto) (0-1) % Puncture Site Rt radial R radial ABG pH 7.359 7.340 L (7.350-7.450) ABG pCO2 54.1 H 54.0 H (35.0-42.0) mmHg ABG pO2 78.7 108.0 H (75.0-100.0) mmHg ABG HCO3 29.7 H 28.4 H (22.0-26.0) mmol/L ABG Total CO2 25.7 24.6 (23.0-27.0) mmol/L ABG O2 Saturation 94.9 L 97.6 (95.0-98.0) % ABG O2 Content 21.2 22.0 (15.0-23.0) %vol ABG Base Excess 3.2 1.8 mm/L ABG Hemoglobin 16.2 16.2 (13.5-18.0) g/dL ABG Oxyhemoglobin 93.0 96.1 % ABG Carboxyhemoglobin 1.5 0.9 (0.0-1.6) % ABG Methemoglobin 0.5 0.6 % Maxwell Test Passed [place] O2 Delivery Device Bipap Bipap Oxygen Flow Rate L Sodium (140-148) mmol/L Potassium (3.6-5.2) mmol/L Chloride (100-108) mmol/L Carbon Dioxide (21-32) mmol/L Anion Gap (5.0-14.0) mmol/L BUN (7-18) mg/dL Creatinine (0.8-1.3) mg/dL Est Cr Clr Drug Dosing mL/min Estimated GFR (MDRD) (>60) Glucose (74-106) mg/dL Calcium (8.5-10.1) mg/dL Total Bilirubin (0.2-1.0) mg/dL AST (15-37) U/L ALT (12-78) U/L Alkaline Phosphatase (46-116) U/L Troponin I (0.000-0.056) ng/mL Total Protein (6.4-8.2) g/dL Albumin (3.4-5.0) g/dL Globulin (2.3-3.5) g/dL Albumin/Globulin Ratio (1.2-2.2) 09/13/ Range/Units 05:48 WBC (4.5-11.0) K/uL RBC (4.30-5.90) M/uL Hgb (12.0-15.0) g/dL Hct (40.0-54.0) % MCV (80-98) fL MCH (27-31) pg MCHC (32-36) % Plt Count (150-400) K/uL Neut % (Auto) (36-66) % Lymph % (Auto) (24-44) % Nelson % (Auto) (2-6) % Eos % (Auto) (2-4) % Baso % (Auto) (0-1) % Puncture Site ABG pH (7.350-7.450) ABG pCO2 (35.0-42.0) mmHg ABG pO2 (75.0-100.0) mmHg ABG HCO3 (22.0-26.0) mmol/L ABG Total CO2 (23.0-27.0) mmol/L ABG O2 Saturation (95.0-98.0) % ABG O2 Content (15.0-23.0) %vol ABG Base Excess mm/L ABG Hemoglobin (13.5-18.0) g/dL ABG Oxyhemoglobin % ABG Carboxyhemoglobin (0.0-1.6) % ABG Methemoglobin % Maxwell Test O2 Delivery Device Oxygen Flow Rate L Sodium 137 L (140-148) mmol/L Potassium 4.8 (3.6-5.2) mmol/L Chloride 102 (100-108) mmol/L Carbon Dioxide 28 (21-32) mmol/L Anion Gap 11.8 (5.0-14.0) mmol/L BUN 19 H (7-18) mg/dL Creatinine 1.0 (0.8-1.3) mg/dL Est Cr Clr Drug Dosing 83.47 mL/min Estimated GFR (MDRD) > 60 (>60) Glucose 157 H (74-106) mg/dL Calcium 9.4 (8.5-10.1) mg/dL Total Bilirubin (0.2-1.0) mg/dL AST (15-37) U/L ALT (12-78) U/L Alkaline Phosphatase (46-116) U/L Troponin I (0.000-0.056) ng/mL Total Protein (6.4-8.2) g/dL Albumin (3.4-5.0) g/dL Globulin (2.3-3.5) g/dL Albumin/Globulin Ratio (1.2-2.2) Med Orders - Current: Current Medications Acetaminophen (Tylenol) 650 mg PO Q4H PRN PRN Reason: Pain (Mild 1-3)/fever Albuterol (Proventil Neb Soln) 2.5 mg NEB Q2H PRN PRN Reason: shortness of breath/wheezing Last Admin: 09/13/18 00:01 Dose: 2.5 mg Albuterol/Ipratropium (Duoneb 3.0-0.5 Mg/3 Ml) 3 ml NEB QIDRT [facility] Last Admin: 09/13/18 07:12 Dose: 3 ml Benzonatate (Tessalon Perles) 100 mg PO TID PRN PRN Reason: Cough Enoxaparin Sodium (Lovenox) 40 mg SUBCUT DAILY [facility] Last Admin: 09/13/18 08:10 Dose: 40 mg Guaifenesin/Codeine Phosphate (Robitussin Ac) 10 ml PO Q4H PRN PRN Reason: Cough Ceftriaxone Sodium 2 gm/ (Sodium Chloride) 50 mls @ 100 mls/hr IV Q24H [facility] Last Admin: 09/12/18 18:48 Dose: 100 mls/hr Azithromycin 500 mg/ Sodium (Chloride) 250 mls @ 250 mls/hr IV Q24H [facility] Ibuprofen (Motrin) 600 mg PO Q6H PRN PRN Reason: Pain/Fever Lisinopril (Prinivil) 10 mg PO DAILY [facility] Lorazepam (Ativan) 0.5 mg IVPUSH Q4H PRN PRN Reason: Anxiety Methylprednisolone Sodium Succinate (Solu-Medrol) 62.5 mg IVPUSH Q8H [facility] Last Admin: 09/13/18 08:08 Dose: 62.5 mg Morphine Sulfate (Morphine) 4 mg IVPUSH Q2H PRN PRN Reason: Pain (severe 7-10) Ondansetron HCl (Zofran Odt) 4 mg PO Q6H PRN PRN Reason: Nausea able to take PO Ondansetron HCl (Zofran) 4 mg IV Q6H PRN PRN Reason: Nausea/Vomiting Pantoprazole Sodium (Protonix) 40 mg PO ACBREAKFAST [facility] Last Admin: 09/13/18 08:07 Dose: 40 mg Polyethylene Glycol (Miralax) 17 gm PO DAILY PRN PRN Reason: Constipation Senna/Docusate Sodium (Senna Plus) 1 tab PO BID PRN PRN Reason: Constipation Discontinued Medications Hydralazine HCl (Apresoline) 5 mg IVPUSH ONETIME ONE Stop: 09/12/18 21:23 Last Admin: 09/12/18 21:34 Dose: 5 mg Azithromycin 500 mg/ Sodium (Chloride) 250 mls @ 250 mls/hr IV Q24H [facility] Last Admin: 09/12/18 19:17 Dose: 250 mls/hr Sodium Chloride (Normal Saline) 1,000 mls @ 100 mls/hr IV ASDIRECTED [facility] Last Admin: 09/13/18 09:35 Dose: 100 mls/hr - Exam Quality Assessment: Supplemental Oxygen, DVT Prophylaxis General: Alert, Oriented, Cooperative, Moderate Distress Lungs: Decreased Breath Sounds, Rhonchi, Wheezing. No: Rales, Rub, Stridor Cardiovascular: Regular Rate, Regular Rhythm, No Murmurs GI/Abdominal Exam: Soft, Non-Tender, No Organomegaly, No Distention Extremities: Non-Tender, No Pedal Edema - Problem List Review Problem List Initiated/Reviewed/Updated: Yes - My Orders Last 24 Hours: My Active Orders 09/13/18 09:59 Convert IV to Saline Lock [OM.PC] Routine 09/13/18 10:15 Lisinopril [Prinivil] 10 mg PO DAILY 09/14/18 05:00 BASIC METABOLIC PANEL,BMP [CHEM] Timed CBC WITH AUTO DIFF [HEME] Timed MAGNESIUM [CHEM] Timed - Plan Plan:: ASSESSMENT AND PLAN - Acute bronchitis - complicated by acute exacerbation of COPD and acute respiratory failure with hypoxia and hypercapnia. Improved since admission with less shortness of breath and cough, off of noninvasive positive pressure ventilation this morning and on a nasal cannula. -Ceftriaxone and azithromycin -IV steroids -Scheduled and as needed nebulizers -Noninvasive ventilation, continue use while sleeping and as needed -Gentle fluids -Symptomatic management of cough -Lorazepam as needed if he develops anxiety/claustrophobia with the mask Hypertension-blood pressure is been consistently elevated thus far during hospitalization -Lisinopril 10 mg by mouth daily Tobacco dependence - Patient will need discussions about tobacco cessation once respiratory status has stabilized. Morbid obesity - BMIs to shy of 55. Maintenance issues - - DVT prophylaxis - enoxaparin - GI prophylaxis - PPI - Nutrition - clear liquids until respiratory status stabilizes - Orta catheter - not indicated CODE STATUS - full code Admission justification - This patient will be admitted for inpatient services and is medically appropriate meeting medical necessity for inpatient admission as outlined in my documentation. I reasonably expect the patient will require inpatient services that span a period time over 2 midnights. I reasonably expect this patient to be discharged or transferred within 96 hours after admission to the Critical [facility]. Disposition - I would anticipate discharge home after the hospital stay Primary care physician - Vaibhav Quiroz NP
[2018-09-13] MEDS: Lisinopril 10 MG Tab PO SCH (10:22)
[2018-09-13] MEDS: Azithromycin 500 MG in Sodium Chloride 0.9% 250 ML IV SCH (17:15)
[2018-09-13] MEDS: cefTRIAXone 2 GM in Sodium Chloride 0.9% 50 ML IV SCH (18:31)
[2018-09-14] MEDS: methylPREDNISolone Sodium Succinate 125 MG/2 ML SDV IVPUSH SCH ×3 (01:05→17:29)
[2018-09-14] MEDS: Albuterol/Ipratropium 3.0-0.5 MG/3 ML Neb Soln NEB SCH ×4 (07:04→21:04)
[2018-09-14] MEDS: Pantoprazole 40 MG Tab.CR PO SCH (07:40)
[2018-09-14] MEDS: Benzonatate 100 MG Cap PO PRN ×2 (07:40→19:01)
[2018-09-14] MEDS: Enoxaparin 40 MG/0.4 ML Syringe SUBCUT SCH (08:52)
[2018-09-14] MEDS: Lisinopril 10 MG Tab PO SCH (08:52)
--- NOTE | 2018-09-14 10:33 | PCM.PN ---
- General Info Date of Service: 09/14/18 Subjective Update: Mr. Austin has noted definite improvement from admission, modest improvement since yesterday. Continues to experience episodes of increased shortness of breath and did use noninvasive ventilation overnight. Vital signs have been stable and he has remained afebrile. Functional Status: Reports: Tolerating Diet, Urinating - Review of Systems General: Reports: Weakness. Denies: Fever, Chills Pulmonary: Reports: Shortness of Breath, Cough, Wheezing. Denies: Sputum, Hemoptysis Cardiovascular: Reports: Dyspnea on Exertion. Denies: Chest Pain, Palpitations , Orthopnea, PND, Edema Gastrointestinal: Reports: No Symptoms - Patient Data Vitals - Most Recent: Last Vital Signs Temp 98.4 F 09/14/18 08:00 Pulse 73 09/14/18 10:00 Resp 24 H 09/14/18 10:00 BP 148/72 H 09/14/18 10:00 Pulse Ox 94 L 09/14/18 10:00 Weight - Most Recent: 367 lb 3.196 oz I&O - Last 24 Hours: Intake & Output 09/13/18 09/14/18 09/14/18 22:59 06:59 14:59 Intake Total 1290 300 Output Total 1475 1525 240 Balance -185 -1225 -240 Lab Results Last 24 Hours: Laboratory Results - last 24 hr 09/14/18 09/14/18 Range/Units 05:57 05:57 WBC 17.5 H (4.5-11.0) K/uL RBC 5.77 (4.30-5.90) M/uL Hgb 15.3 H (12.0-15.0) g/dL Hct 50.2 (40.0-54.0) % MCV 87 (80-98) fL MCH 27 (27-31) pg MCHC 31 L (32-36) % Plt Count 347 (150-400) K/uL Neut % (Auto) 92 H (36-66) % Lymph % (Auto) 6 L (24-44) % Sac % (Auto) 2 (2-6) % Eos % (Auto) 0 L (2-4) % Baso % (Auto) 0 (0-1) % Sodium 141 (140-148) mmol/L Potassium 5.2 (3.6-5.2) mmol/L Chloride 102 (100-108) mmol/L Carbon Dioxide 32 (21-32) mmol/L Anion Gap 7.1 (5.0-14.0) mmol/L BUN 19 H (7-18) mg/dL Creatinine 1.0 (0.8-1.3) mg/dL Est Cr Clr Drug Dosing 83.19 mL/min Estimated GFR (MDRD) > 60 (>60) Glucose 142 H (74-106) mg/dL Calcium 9.1 (8.5-10.1) mg/dL Magnesium 2.2 (1.8-2.4) mg/dL Med Orders - Current: Current Medications Acetaminophen (Tylenol) 650 mg PO Q4H PRN PRN Reason: Pain (Mild 1-3)/fever Last Admin: 09/13/18 12:21 Dose: 650 mg Albuterol (Proventil Neb Soln) 2.5 mg NEB Q2H PRN PRN Reason: shortness of breath/wheezing Last Admin: 09/13/18 00:01 Dose: 2.5 mg Albuterol/Ipratropium (Duoneb 3.0-0.5 Mg/3 Ml) 3 ml NEB QIDRT [facility] Last Admin: 09/14/18 07:04 Dose: 3 ml Benzonatate (Tessalon Perles) 100 mg PO TID PRN PRN Reason: Cough Last Admin: 09/14/18 07:40 Dose: 100 mg Enoxaparin Sodium (Lovenox) 40 mg SUBCUT DAILY [facility] Last Admin: 09/14/18 08:52 Dose: 40 mg Guaifenesin/Codeine Phosphate (Robitussin Ac) 10 ml PO Q4H PRN PRN Reason: Cough Ceftriaxone Sodium 2 gm/ (Sodium Chloride) 50 mls @ 100 mls/hr IV Q24H [facility] Last Admin: 09/13/18 18:31 Dose: 100 mls/hr Azithromycin 500 mg/ Sodium (Chloride) 250 mls @ 250 mls/hr IV Q24H [facility] Last Admin: 09/13/18 17:15 Dose: 250 mls/hr Ibuprofen (Motrin) 600 mg PO Q6H PRN PRN Reason: Pain/Fever Lisinopril (Prinivil) 10 mg PO DAILY [facility] Last Admin: 09/14/18 08:52 Dose: 10 mg Lorazepam (Ativan) 0.5 mg IVPUSH Q4H PRN PRN Reason: Anxiety Methylprednisolone Sodium Succinate (Solu-Medrol) 62.5 mg IVPUSH Q8H [facility] Last Admin: 09/14/18 08:52 Dose: 62.5 mg Morphine Sulfate (Morphine) 4 mg IVPUSH Q2H PRN PRN Reason: Pain (severe 7-10) Ondansetron HCl (Zofran Odt) 4 mg PO Q6H PRN PRN Reason: Nausea able to take PO Ondansetron HCl (Zofran) 4 mg IV Q6H PRN PRN Reason: Nausea/Vomiting Pantoprazole Sodium (Protonix) 40 mg PO ACBREAKFAST [facility] Last Admin: 09/14/18 07:40 Dose: 40 mg Polyethylene Glycol (Miralax) 17 gm PO DAILY PRN PRN Reason: Constipation Senna/Docusate Sodium (Senna Plus) 1 tab PO BID PRN PRN Reason: Constipation Discontinued Medications Hydralazine HCl (Apresoline) 5 mg IVPUSH ONETIME ONE Stop: 09/12/18 21:23 Last Admin: 09/12/18 21:34 Dose: 5 mg Azithromycin 500 mg/ Sodium (Chloride) 250 mls @ 250 mls/hr IV Q24H [facility] Last Admin: 09/12/18 19:17 Dose: 250 mls/hr Sodium Chloride (Normal Saline) 1,000 mls @ 100 mls/hr IV ASDIRECTED [facility] Last Admin: 09/13/18 09:35 Dose: 100 mls/hr - Exam Quality Assessment: Supplemental Oxygen, DVT Prophylaxis General: Alert, Oriented, Cooperative, Moderate Distress Lungs: Decreased Breath Sounds, Rhonchi, Wheezing. No: Crackles, Rales, Stridor Cardiovascular: Regular Rate, Regular Rhythm, No Murmurs GI/Abdominal Exam: Soft, Non-Tender, No Organomegaly, No Distention Extremities: Non-Tender, No Pedal Edema - Problem List Review Problem List Initiated/Reviewed/Updated: Yes - My Orders Last 24 Hours: My Active Orders 09/13/18 09:59 Convert IV to Saline Lock [OM.PC] Routine 09/13/18 10:15 Lisinopril [Prinivil] 10 mg PO DAILY 09/15/18 05:00 BASIC METABOLIC PANEL,BMP [CHEM] Timed CBC WITH AUTO DIFF [HEME] Timed - Plan Plan:: ASSESSMENT AND PLAN - Acute bronchitis - complicated by acute exacerbation of COPD and acute respiratory failure with hypoxia and hypercapnia. Improved since admission with less shortness of breath and cough, continues to use noninvasive ventilation while sleeping -Ceftriaxone and azithromycin -IV steroids -Scheduled and as needed nebulizers -Noninvasive ventilation, continue use while sleeping and as needed -Symptomatic management of cough -Lorazepam as needed if he develops anxiety/claustrophobia with the mask Hypertension-blood pressure is been consistently elevated thus far during hospitalization -Lisinopril 10 mg by mouth daily Tobacco dependence - Patient will need discussions about tobacco cessation once respiratory status has stabilized. Morbid obesity - BMIs to shy of 55. Maintenance issues - - DVT prophylaxis - enoxaparin - GI prophylaxis - PPI - Nutrition - clear liquids until respiratory status stabilizes - Orta catheter - not indicated CODE STATUS - full code Admission justification - This patient will be admitted for inpatient services and is medically appropriate meeting medical necessity for inpatient admission as outlined in my documentation. I reasonably expect the patient will require inpatient services that span a period time over 2 midnights. I reasonably expect this patient to be discharged or transferred within 96 hours after admission to the Critical [facility]. Disposition - I would anticipate discharge home after the hospital stay Primary care physician - Vaibhav Quiroz NP
[2018-09-14] MEDS: Azithromycin 500 MG in Sodium Chloride 0.9% 250 ML IV SCH (17:29)
[2018-09-14] MEDS: cefTRIAXone 2 GM in Sodium Chloride 0.9% 50 ML IV SCH (18:37)
[2018-09-14] MEDS: Codeine/guaiFENesin 100mg-10 MG/5 ML Syrup 10 ML Cup PO PRN (19:01)
[2018-09-15] MEDS: methylPREDNISolone Sodium Succinate 125 MG/2 ML SDV IVPUSH SCH ×2 (01:06→15:06)
[2018-09-15] MEDS: Albuterol/Ipratropium 3.0-0.5 MG/3 ML Neb Soln NEB SCH ×4 (07:17→20:13)
[2018-09-15] MEDS: Pantoprazole 40 MG Tab.CR PO SCH (07:42)
[2018-09-15] MEDS: Benzonatate 100 MG Cap PO PRN ×2 (08:29→16:21)
[2018-09-15] MEDS: Codeine/guaiFENesin 100mg-10 MG/5 ML Syrup 10 ML Cup PO PRN ×2 (08:29→16:21)
[2018-09-15] MEDS: Lisinopril 10 MG Tab PO SCH ×3 (08:38→20:13)
[2018-09-15] MEDS: Enoxaparin 40 MG/0.4 ML Syringe SUBCUT SCH (08:39)
--- NOTE | 2018-09-15 09:14 | PCM.PN ---
- General Info Date of Service: 09/15/18 Subjective Update: Mr. Austin has been stable since yesterday with further improvement in shortness of breath and cough. He is now able to move short distances without shortness of breath and was able to shower yesterday. Vital signs have remained stable and he has been afebrile. Functional Status: Reports: Tolerating Diet, Ambulating, Urinating - Review of Systems General: Reports: Weakness. Denies: Fever, Chills Pulmonary: Reports: Shortness of Breath, Cough, Wheezing. Denies: Pleuritic Chest Pain, Sputum, Hemoptysis Cardiovascular: Reports: Dyspnea on Exertion. Denies: Chest Pain, Palpitations , Orthopnea, PND, Edema, Lightheadedness Gastrointestinal: Reports: No Symptoms - Patient Data Vitals - Most Recent: Last Vital Signs Temp 97 F 09/15/18 08:32 Pulse 82 09/15/18 08:32 Resp 22 H 09/15/18 08:32 BP 166/102 H 09/15/18 08:38 Pulse Ox 95 09/15/18 08:32 Weight - Most Recent: 367 lb 3.196 oz I&O - Last 24 Hours: Intake & Output 09/14/18 09/15/18 09/15/18 22:59 06:59 14:59 Intake Total 250 300 Output Total 1050 1100 Balance -800 -800 Lab Results Last 24 Hours: Laboratory Results - last 24 hr 09/15/18 09/15/18 Range/Units 05:44 05:44 WBC 15.6 H (4.5-11.0) K/uL RBC 5.66 (4.30-5.90) M/uL Hgb 15.1 H (12.0-15.0) g/dL Hct 49.5 (40.0-54.0) % MCV 88 (80-98) fL MCH 27 (27-31) pg MCHC 31 L (32-36) % Plt Count 339 (150-400) K/uL Neut % (Auto) 92 H (36-66) % Lymph % (Auto) 6 L (24-44) % [place] % (Auto) 2 (2-6) % Eos % (Auto) 0 L (2-4) % Baso % (Auto) 0 (0-1) % Sodium 141 (140-148) mmol/L Potassium 5.1 (3.6-5.2) mmol/L Chloride 103 (100-108) mmol/L Carbon Dioxide 34 H (21-32) mmol/L Anion Gap 9.1 (5.0-14.0) mmol/L BUN 24 H (7-18) mg/dL Creatinine 1.0 (0.8-1.3) mg/dL Est Cr Clr Drug Dosing 83.19 mL/min Estimated GFR (MDRD) > 60 (>60) Glucose 154 H (74-106) mg/dL Calcium 8.7 (8.5-10.1) mg/dL Med Orders - Current: Current Medications Acetaminophen (Tylenol) 650 mg PO Q4H PRN PRN Reason: Pain (Mild 1-3)/fever Last Admin: 09/13/18 12:21 Dose: 650 mg Albuterol (Proventil Neb Soln) 2.5 mg NEB Q2H PRN PRN Reason: shortness of breath/wheezing Last Admin: 09/13/18 00:01 Dose: 2.5 mg Albuterol/Ipratropium (Duoneb 3.0-0.5 Mg/3 Ml) 3 ml NEB QIDRT [facility] Last Admin: 09/15/18 07:17 Dose: 3 ml Benzonatate (Tessalon Perles) 100 mg PO TID PRN PRN Reason: Cough Last Admin: 09/15/18 08:29 Dose: 100 mg Enoxaparin Sodium (Lovenox) 40 mg SUBCUT DAILY [facility] Last Admin: 09/15/18 08:39 Dose: 40 mg Guaifenesin/Codeine Phosphate (Robitussin Ac) 10 ml PO Q4H PRN PRN Reason: Cough Last Admin: 09/15/18 08:29 Dose: 10 ml Ceftriaxone Sodium 2 gm/ (Sodium Chloride) 50 mls @ 100 mls/hr IV Q24H [facility] Last Admin: 09/14/18 18:37 Dose: 100 mls/hr Ibuprofen (Motrin) 600 mg PO Q6H PRN PRN Reason: Pain/Fever Lisinopril (Prinivil) 10 mg PO DAILY [facility] Last Admin: 09/15/18 08:38 Dose: 10 mg Lorazepam (Ativan) 0.5 mg IVPUSH Q4H PRN PRN Reason: Anxiety Methylprednisolone Sodium Succinate (Solu-Medrol) 40 mg IVPUSH Q12H [facility] Morphine Sulfate (Morphine) 4 mg IVPUSH Q2H PRN PRN Reason: Pain (severe 7-10) Ondansetron HCl (Zofran Odt) 4 mg PO Q6H PRN PRN Reason: Nausea able to take PO Ondansetron HCl (Zofran) 4 mg IV Q6H PRN PRN Reason: Nausea/Vomiting Pantoprazole Sodium (Protonix) 40 mg PO ACBREAKFAST [facility] Last Admin: 09/15/18 07:42 Dose: 40 mg Polyethylene Glycol (Miralax) 17 gm PO DAILY PRN PRN Reason: Constipation Senna/Docusate Sodium (Senna Plus) 1 tab PO BID PRN PRN Reason: Constipation Discontinued Medications Hydralazine HCl (Apresoline) 5 mg IVPUSH ONETIME ONE Stop: 09/12/18 21:23 Last Admin: 09/12/18 21:34 Dose: 5 mg Azithromycin 500 mg/ Sodium (Chloride) 250 mls @ 250 mls/hr IV Q24H [facility] Last Admin: 09/12/18 19:17 Dose: 250 mls/hr Sodium Chloride (Normal Saline) 1,000 mls @ 100 mls/hr IV ASDIRECTED [facility] Last Admin: 09/13/18 09:35 Dose: 100 mls/hr Azithromycin 500 mg/ Sodium (Chloride) 250 mls @ 250 mls/hr IV Q24H [facility] Last Admin: 09/14/18 17:29 Dose: 250 mls/hr Methylprednisolone Sodium Succinate (Solu-Medrol) 62.5 mg IVPUSH Q8H [facility] Last Admin: 09/15/18 01:06 Dose: 62.5 mg - Exam Quality Assessment: Supplemental Oxygen, DVT Prophylaxis General: Alert, Oriented, Cooperative, Mild Distress Lungs: Normal Respiratory Effort, Decreased Breath Sounds, Wheezing. No: Crackles, Rales, Rhonchi Cardiovascular: Regular Rate, Regular Rhythm, No Murmurs GI/Abdominal Exam: Soft, Non-Tender, No Organomegaly, No Distention - Problem List Review Problem List Initiated/Reviewed/Updated: Yes - My Orders Last 24 Hours: My Active Orders 09/14/18 Dinner Regular Diet [DIET] 09/15/18 09:06 Patient Status [ADT] Routine 09/15/18 09:10 Discontinue Telemetry Monitoring [Cardiac Monitoring Discontinue] [RC] Click to Edit 09/15/18 09:15 methylPREDNISolone Sod Succ [Solu-MEDROL] 40 mg IVPUSH Q12H - Plan Plan:: ASSESSMENT AND PLAN - Acute bronchitis - complicated by acute exacerbation of COPD and acute respiratory failure with hypoxia and hypercapnia. Improved since admission with less shortness of breath and cough, continues to use noninvasive ventilation while sleeping -Discontinue azithromycin, he has completed a full course of this antibiotic therapy -Continue ceftriaxone -IV steroids -Scheduled and as needed nebulizers -Noninvasive ventilation, continue use while sleeping and as needed -Symptomatic management of cough -Lorazepam as needed if he develops anxiety/claustrophobia with the mask Hypertension-blood pressure control is improved with lisinopril -Lisinopril 10 mg by mouth daily Tobacco dependence - Patient will need discussions about tobacco cessation once respiratory status has stabilized. Morbid obesity - BMIs to shy of 55. Maintenance issues - - DVT prophylaxis - enoxaparin - GI prophylaxis - PPI - Nutrition - clear liquids until respiratory status stabilizes - Orta catheter - not indicated CODE STATUS - full code Admission justification - This patient will be admitted for inpatient services and is medically appropriate meeting medical necessity for inpatient admission as outlined in my documentation. I reasonably expect the patient will require inpatient services that span a period time over 2 midnights. I reasonably expect this patient to be discharged or transferred within 96 hours [facility] Disposition - I would anticipate discharge home after the hospital stay Primary care physician - Vaibhav Quiroz NP
[2018-09-15] MEDS: methylPREDNISolone Sodium Succinate 40 MG/1 ML SDV IVPUSH SCH ×2 (09:52→21:47)
[2018-09-15] MEDS: cefTRIAXone 2 GM in Sodium Chloride 0.9% 50 ML IV SCH (17:37)
[2018-09-15] MEDS ORDERED: Lisinopril 10 MG Tab PO SCH (21:00)
[2018-09-16] MEDS: Codeine/guaiFENesin 100mg-10 MG/5 ML Syrup 10 ML Cup PO PRN (00:20)
[2018-09-16] MEDS: Benzonatate 100 MG Cap PO PRN (00:21)
[2018-09-16] MEDS: Albuterol/Ipratropium 3.0-0.5 MG/3 ML Neb Soln NEB SCH ×2 (07:10→11:19)
[2018-09-16] MEDS: Pantoprazole 40 MG Tab.CR PO SCH (07:33)
[2018-09-16] MEDS ORDERED: cefTRIAXone 2 GM in Sodium Chloride 0.9% 50 ML IV ONE (09:00)
--- NOTE | 2018-09-16 09:04 | PCM.DCSUM1 ---
Discharge Summary - Hospital Course Brief History: Mr. Austin is a 53-year-old gentleman who was admitted through the emergency department with shortness of breath, hypoxia, hypercapnia, secondary to COPD exacerbation and underlying bronchitis. - Discharge Data Discharge Date: 09/16/18 Discharge Disposition: Home, Self-Care 01 Condition: Fair - Discharge Diagnosis/Problem(s) (1) COPD exacerbation SNOMED Code(s): 726766123 ICD Code: J44.1 - CHRONIC OBSTRUCTIVE PULMONARY DISEASE W (ACUTE) EXACERBATION Status: Acute Current Visit: Yes (2) Acute bronchitis SNOMED Code(s): 25806754 ICD Code: J20.9 - ACUTE BRONCHITIS, UNSPECIFIED Status: Acute Current Visit: Yes Qualifiers: Bronchitis organism: unspecified organism Qualified Code(s): J20.9 - Acute bronchitis, unspecified (3) Acute respiratory failure with hypoxia and hypercapnia SNOMED Code(s): 046942384 ICD Code: J96.01 - ACUTE RESPIRATORY FAILURE WITH HYPOXIA; J96.02 - ACUTE RESPIRATORY FAILURE WITH HYPERCAPNIA Status: Acute Current Visit: Yes (4) Morbid obesity with BMI of 50.0-59.9, adult SNOMED Code(s): 091032957, 54076793397763 ICD Code: E66.01 - MORBID (SEVERE) OBESITY DUE TO EXCESS CALORIES; Z68.43 - BODY MASS INDEX (BMI) 50-59.9, ADULT Status: Chronic Current Visit: Yes - Patient Summary/Data Hospital Course: Mr. Austin presented to the emergency room by ambulance with acute onset of shortness of breath that started around 2 PM this afternoon after he woke up from a nap. He reports that he had an increase in his shortness of breath as well as a cough 2 days ago and did use his albuterol inhaler more than usual. Symptoms were better yesterday and were pretty minimal this morning prior to taking a nap. He does note an increased cough which is occasionally productive, mostly for clear sputum. He doesn't think he's had any fevers or chills. Appetite has been normal. No change in bowel or bladder habits. Since onset of symptoms this afternoon he reports a mild to moderate sharp pain underneath his rib cage. This radiates around to the back slightly. Pain is worse with taking deep breaths and better when he is able to slow down his breathing. He said normally using a nebulizer decreases his shortness of breath symptoms but it did not work today. Has not had any sick contacts. He did have steroids about 3 weeks ago but has not had any antibiotics. He has not traveled. No chest pain or exertional chest pain. His white count was normal and chemistries were unremarkable. ABGs showed mild acidosis with a PCO2 of 58 and hypoxia. Chest x- ray was clear. He did receive steroids as well as a nebulizer in the ambulance. He will be admitted to the intensive care unit for bronchitis with COPD exacerbation, respiratory failure and the necessity of noninvasive ventilation. On admission he was placed on noninvasive positive pressure ventilation, IV antibiotics with azithromycin and Rocephin, IV Solu-Medrol, and regular nebulizer therapy. Over the next few days he gradually improved and required less frequent use of the BiPAP. By the time of discharge he was feeling close to being back to his usual level of dyspnea. He has completed a course of azithromycin and Rocephin and will not be discharged with antibiotic therapy. He will receive 3 days of prednisone at 40 mg by mouth daily, and then discontinue. He already has home oxygen and will continue to use this continuously. Follow-up appointment will be scheduled with his primary care provider within one week and he will be scheduled with appointment to see pulmonology within a month. Activity will be as tolerated and he will resume his usual diet. - Patient Instructions Diet: Usual Diet as Tolerated Activity: As Tolerated Other/Special Instructions: Please schedule follow-up appointment with primary care provider within one week. - Discharge Plan *PRESCRIPTION DRUG MONITORING PROGRAM REVIEWED*: Not Applicable *COPY OF PRESCRIPTION DRUG MONITORING REPORT IN PATIENT ARIANA: Not Applicable Prescriptions/Med Rec: Lisinopril [Prinivil] 10 mg PO BID #60 tablet predniSONE [Prednisone] 40 mg PO DAILY #6 tablet Home Medications: Home Meds Albuterol Sulfate [Ventolin Hfa] 2 puff INH Q4HR 05/25/17 [History] Ipratropium [place] [Atrovent Hfa] 12.9 gm IH QID #1 hfa.aer.ad 05/25/17 [Rx] Tiotropium [Spiriva HandiHaler] 1 cap INH DAILY 05/25/17 [History] Lisinopril [Prinivil] 10 mg PO BID #60 tablet 09/16/18 [Rx] predniSONE [Prednisone] 40 mg PO DAILY #6 tablet 09/16/18 [Rx] Patient Handouts: Chronic Obstructive Pulmonary Disease, [id number], Acute Bronchitis, Adult, [id number] Referrals: Vaibhav Quiroz NP [Nurse Practitioner] - - Discharge Summary/Plan Comment DC Time >30 min.: No - Patient Data Vitals - Most Recent: Last Vital Signs Temp 97 F 09/16/18 07:38 Pulse 72 09/16/18 07:38 Resp 20 09/16/18 07:38 BP 175/106 H 09/16/18 07:38 Pulse Ox 99 09/16/18 07:38 Weight - Most Recent: 367 lb 3.196 oz I&O - Last 24 hours: Intake & Output 09/15/18 09/16/18 09/16/18 22:59 06:59 14:59 Intake Total 50 1000 Output Total 500 Balance 50 500 Med Orders - Current: Current Medications Acetaminophen (Tylenol) 650 mg PO Q4H PRN PRN Reason: Pain (Mild 1-3)/fever Last Admin: 09/13/18 12:21 Dose: 650 mg Albuterol (Proventil Neb Soln) 2.5 mg NEB Q2H PRN PRN Reason: shortness of breath/wheezing Last Admin: 09/13/18 00:01 Dose: 2.5 mg Albuterol/Ipratropium (Duoneb 3.0-0.5 Mg/3 Ml) 3 ml NEB QIDRT [facility] Last Admin: 09/16/18 07:10 Dose: 3 ml Benzonatate (Tessalon Perles) 100 mg PO TID PRN PRN Reason: Cough Last Admin: 09/16/18 00:21 Dose: 100 mg Enoxaparin Sodium (Lovenox) 40 mg SUBCUT DAILY [facility] Last Admin: 09/15/18 08:39 Dose: 40 mg Guaifenesin/Codeine Phosphate (Robitussin Ac) 10 ml PO Q4H PRN PRN Reason: Cough Last Admin: 09/16/18 00:20 Dose: 10 ml Ceftriaxone Sodium 2 gm/ (Sodium Chloride) 50 mls @ 100 mls/hr IV ONETIME ONE Stop: 09/16/18 09:29 Ibuprofen (Motrin) 600 mg PO Q6H PRN PRN Reason: Pain/Fever Lisinopril (Prinivil) 10 mg PO BID [facility] Last Admin: 09/15/18 20:13 Dose: Not Given Lorazepam (Ativan) 0.5 mg IVPUSH Q4H PRN PRN Reason: Anxiety Methylprednisolone Sodium Succinate (Solu-Medrol) 40 mg IVPUSH Q12H [facility] Last Admin: 09/15/18 21:47 Dose: 40 mg Morphine Sulfate (Morphine) 4 mg IVPUSH Q2H PRN PRN Reason: Pain (severe 7-10) Ondansetron HCl (Zofran Odt) 4 mg PO Q6H PRN PRN Reason: Nausea able to take PO Ondansetron HCl (Zofran) 4 mg IV Q6H PRN PRN Reason: Nausea/Vomiting Pantoprazole Sodium (Protonix) 40 mg PO ACBREAKFAST [facility] Last Admin: 09/16/18 07:33 Dose: 40 mg Polyethylene Glycol (Miralax) 17 gm PO DAILY PRN PRN Reason: Constipation Senna/Docusate Sodium (Senna Plus) 1 tab PO BID PRN PRN Reason: Constipation Discontinued Medications Hydralazine HCl (Apresoline) 5 mg IVPUSH ONETIME ONE Stop: 09/12/18 21:23 Last Admin: 09/12/18 21:34 Dose: 5 mg Azithromycin 500 mg/ Sodium (Chloride) 250 mls @ 250 mls/hr IV Q24H [facility] Last Admin: 09/12/18 19:17 Dose: 250 mls/hr Ceftriaxone Sodium 2 gm/ (Sodium Chloride) 50 mls @ 100 mls/hr IV Q24H [facility] Last Admin: 09/15/18 17:37 Dose: 100 mls/hr Sodium Chloride (Normal Saline) 1,000 mls @ 100 mls/hr IV ASDIRECTED [facility] Last Admin: 09/13/18 09:35 Dose: 100 mls/hr Azithromycin 500 mg/ Sodium (Chloride) 250 mls @ 250 mls/hr IV Q24H [facility] Last Admin: 09/14/18 17:29 Dose: 250 mls/hr Lisinopril (Prinivil) 10 mg PO DAILY [facility] Last Admin: 09/15/18 08:38 Dose: 10 mg Lisinopril (Prinivil) 10 mg PO BID [facility] Methylprednisolone Sodium Succinate (Solu-Medrol) 62.5 mg IVPUSH Q8H [facility] Last Admin: 09/15/18 15:06 Dose: Not Given - Exam Quality Assessment: Reports: Supplemental Oxygen, DVT Prophylaxis General: Reports: Alert, Oriented, Cooperative, Mild Distress Lungs: Reports: Decreased Breath Sounds, Wheezing. Denies: Crackles, Rales, Rhonchi, Rub Cardiovascular: Reports: Regular Rate, Regular Rhythm, No Murmurs GI/Abdominal Exam: Soft, Non-Tender, No Organomegaly, No Distention Extremities: Non-Tender, No Pedal Edema
[2018-09-16] MEDS: Lisinopril 10 MG Tab PO SCH (09:14)
[2018-09-16] MEDS: Enoxaparin 40 MG/0.4 ML Syringe SUBCUT SCH (09:20)
[2018-09-16] MEDS: methylPREDNISolone Sodium Succinate 40 MG/1 ML SDV IVPUSH SCH (11:34)
== END 2018-09-16 13:45 | disposition home or self-care (01) | DRG 190 ==
LOC: JP.ED 16:47 → JP.ICU 18:01 → JP.MS 09-14 15:32 → JP.ICU 09-14 15:50
PROVIDERS: ADMIT Internal Medicine; ATTEND Hospitalist
PROC: 5A09457 Assistance with Respiratory Ventilation, 24-96 Consecutive Hours, Continuous Positive Airway Pressure (ICD-10-PCS; principal; 2018-09-12)
DX: J44.0 Chronic obstructive pulmonary disease with (acute) lower respiratory infection (principal); J96.01 Acute respiratory failure with hypoxia; J96.02 Acute respiratory failure with hypercapnia; E87.2 Acidosis; Z68.43 Body mass index [BMI] 50.0-59.9, adult; J20.9 Acute bronchitis, unspecified; J44.1 Chronic obstructive pulmonary disease with (acute) exacerbation; F17.210 Nicotine dependence, cigarettes, uncomplicated; E66.01 Morbid (severe) obesity due to excess calories; I10 Essential (primary) hypertension
CPT/HCPCS: 36415; 36600; 71045; 80048; 80053; 82803; 83735; 84484; 85025; 85027; 94640; 94660; 99284-25; A9270-GY; J0360; J0456; J0696; J1650; J2920; J2930; J7030; J7050; J7620-GY